=== PATIENT | male | born 1945 | race Caucasian/White ===

== ENCOUNTER → 2017-03-01 | Outpatient (CLI) | payer OTHER ==
[~2017-03-01] MED LIST: ACETAMINOPHEN325 MG PO; DOCUSATE SODIU100 MG PO; KLONOPIN0.5 M3; LANOXIN125 MCG PO; LEVAQUIN750 M1 PO; MIRALAX17 GM PO; OXYCODONE HCL5 MG PO; PANTOPRAZOLE SO40 MG PO
--- NOTE | ~2017-03-01 | CR63 ---
[facility] A Service of [facility] RADIOLOGY TEXT RESULTS PATIENT: TANO ZAVALA LOCATION: [facility] : 44 UNIT #: [id number] AGE: [address]: Zander Wilks MD SEX: M ORDER DR: [id number] [facility] [address] [place], [place] [address] [id number] O MR#: [id number] Acc #: [id number] NAME: TANO ZAVALA : 1945 SEX: M STUDY DATE/TIME: 03/01/2017 16:14 UNIT: [facility] ROOM: STUDY DESCRIPTION: CR Chest 2 View Attending Physician: Zander Wilks M.D. Referring Physician: Zander Wilks M.D. Ordering Physician: Zander Wilks M.D. Primary Care Physician: Madina Thomas M.D. MEDICAL IMAGING REPORT This report is preliminary unless electronic signature is present EXAM PA and lateral chest INDICATIONS Pleural effusion. Shortness of breath for 1 week. There are no comparison studies available. FINDINGS There is a moderate-sized right pleural effusion with atelectasis or consolidation in the right base. There is a rounded density on the PA view of the right upper zone measuring about 3.1 cm. Unsure if this represents a nodule or mass or just some loculated pleural fluid. The heart size is normal. Degenerative changes of the shoulder on the right. IMPRESSION 1. Moderate-sized right pleural effusion with atelectasis or consolidation in the right base. 2. A 3.1 cm ovoid density projecting over the periphery of the right upper zone is indeterminate. It may be some loculated pleural fluid or possibly a mass. Correlation with CT may be helpful. Dictated by... Haja Ma M.D. THIS IS AN ELECTRONICALLY VERIFIED REPORT Haja Ma M.D. at 03/02/2017 7:20 AM IRWIN/petrona TD: 03/01/2017 22:50 JOB #: [id number] MEDICAL IMAGING REPORT [facility] A Service of [facility] RADIOLOGY TEXT RESULTS PATIENT: TANO ZAVALA [id number] 44 UNIT #: [id number] AGE: [address]: Zander Wilks MD SEX: M ORDER DR: Page 1 of 1 COPY
--- NOTE | ~2017-03-01 | EKG ---
PATIENT: TANO ZAVALA UNIT #: [id number] Ventricular Rate: 78 BPM Atrial Rate: 78 BPM P-R Interval: 120 ms QRS Duration: 78 ms Q-T Interval: 372 ms QTC Calculation(Bezet): 424 ms P Plover: 60 degrees Calculated R Plover: 17 degrees Calculated T Plover: 33 degrees Diagnosis Line: Normal sinus rhythm Diagnosis Line: Normal ECG Diagnosis Line: No previous ECGs available Diagnosis Line: Confirmed by ALEXSANDRA KESSLER MD ([id number]) on Diagnosis Line: 03/02/2017 6:49:11 AM INTERPRETING MD: BERENICE
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
== END | disposition home or self-care (01) ==
LOC: CECH 14:18
DX: Z01.818 Encounter for other preprocedural examination (principal); I48.91 Unspecified atrial fibrillation; J90 Pleural effusion, not elsewhere classified; J98.4 Other disorders of lung; I36.1 Nonrheumatic tricuspid (valve) insufficiency; I31.3 Pericardial effusion (noninflammatory)
CPT/HCPCS: 71020; 93005; 93306

== ENCOUNTER 2017-03-06 07:09 | Inpatient (IN) | payer OTHER ==
--- NOTE | ~2017-03-06 | CR63 ---
[facility] A Service of [facility] RADIOLOGY TEXT RESULTS PATIENT: TANO ZAVALA SR RAY LOCATION: [facility] : 44 UNIT #: [id number] AGE: [address]: Zander Wilks MD SEX: M ORDER DR: [id number] [facility] [address] [place], [place] [address] [id number] I MR#: [id number] Acc #: [id number] NAME: TANO ZAVALA : 1945 SEX: M STUDY DATE/TIME: 03/06/2017 8:43 UNIT: [facility] ROOM: STUDY DESCRIPTION: CR Chest 2 View Attending Physician: Zander Wilks M.D. Ordering Physician: Zander Wilks M.D. Primary Care Physician: Madina Thomas M.D. MEDICAL IMAGING REPORT This report is preliminary unless electronic signature is present EXAM Chest x-ray 03/06 INDICATIONS Pleural effusion. Shortness of air. Preop exam for fluid removal today. FINDINGS Two 2 views of the chest are compared with 03/01/2017. There is a large right pleural effusion which has enlarged in the interval. There is underlying consolidation in the right lgd-[id number] lung. Left lung is clear. No pneumothorax. Mixed lytic and sclerotic lesion in the proximal humerus on the right is partially seen. Nonemergent followup with dedicated shoulder radiographs recommended. IMPRESSION 1. Large right pleural effusion, increased from the prior study. There is underlying consolidation right wxu-kd-cmsrb lung. 2. Left lung clear. 3. Mixed density lesion in the proximal right humerus. Nonemergent followup with dedicated right shoulder radiographs recommended. Dictated by... Tano Card Jr., M.D. THIS IS AN ELECTRONICALLY VERIFIED REPORT Tano Card Jr., M.D. at 03/06/2017 3:38 PM CLINTON/rigoberto TD: 03/06/2017 13:49 JOB #: [id number] [facility] A Service of [facility] RADIOLOGY TEXT RESULTS PATIENT: TANO ZAVALA SR LENA LOCATION: [facility] [address]-6 : 44 UNIT #: [id number] AGE: [address]: Zander Wilks MD SEX: M ORDER DR: MEDICAL IMAGING REPORT Page 1 of 1 COPY
--- NOTE | ~2017-03-06 | EKG ---
PATIENT: TANO ZAVALA UNIT #: [id number] Ventricular Rate: 80 BPM Atrial Rate: 80 BPM P-R Interval: 118 ms QRS Duration: 68 ms Q-T Interval: 368 ms QTC Calculation(Bezet): 424 ms P Charlotte: 53 degrees Calculated R Charlotte: 16 degrees Calculated T Charlotte: 28 degrees Diagnosis Line: Normal sinus rhythm Diagnosis Line: Normal ECG Diagnosis Line: When compared with ECG of 01-MAR-2017 15:43, Diagnosis Line: No significant change was found Diagnosis Line: Confirmed by ALEXSANDRA KESSLER MD ([id number]) on Diagnosis Line: 03/07/2017 10:51:14 AM INTERPRETING JERED NG
--- NOTE | ~2017-03-06 | CR72 ---
[facility] A Service of [facility] RADIOLOGY TEXT RESULTS PATIENT: TANO ZAVALA SR LOCATION: [facility] 55- : 44 UNIT #: [id number] AGE: [address]: Zander Wilks MD SEX: M ORDER DR: [id number] [facility] [address] [place], [place] [address] [id number] I MR#: [id number] Acc #: [id number] NAME: TANO ZAVALA SR : 1945 SEX: M STUDY DATE/TIME: 03/10/2017 6:29 UNIT: [facility] ROOM: [facility] STUDY DESCRIPTION: CR Chest Single View Portable Attending Physician: Zander Wilks M.D. Ordering Physician: Alysia Turcios A.P.R.N. Primary Care Physician: Madina Thomas M.D. MEDICAL IMAGING REPORT This report is preliminary unless electronic signature is present EXAM Frontal chest, 03/10/2017. INDICATIONS Right-sided chest tube. COPD. Status post video-assisted fluoroscopy. Symptoms 4 days. COPD and atrial fibrillation. TECHNIQUE Frontal chest compared with 03/09/2017. FINDINGS Two right-sided chest tubes are present. Cardiac silhouette stable. Lung volumes are low with bronchovascular crowding versus mild central vascular congestion. No new opacities on the left. Persistent opacities in the right lung base with pleural thickening or pleural fluid extending to the right lung apex. Probable small right effusion. There is a rounded opacity in the lower lung zone on the right which is nonspecific, but may represent some fluid in the minor fissure. No pneumothorax. IMPRESSION 1. Right-sided chest tubes remain present. No distinct pneumothorax. 2. Redemonstration of opacities in the right lung base with a right-sided effusion. There is a rounded opacity in the lower lung zone, that may represent some fluid associated with a minor fissure. Attention on followup recommended. 3. Pleural thickening/pleural fluid extending into the right lung apex unchanged. Left lung demonstrates no significant change. Dictated by... Jorge Timmons M.D. THIS IS AN ELECTRONICALLY VERIFIED REPORT [facility] A Service of [facility] & [facility] RADIOLOGY TEXT RESULTS PATIENT: TANO ZAVALA SR LOCATION: [facility] 554-01 : 43 UNIT #: [id number] AGE: [address]: Zander Wilks MD SEX: M ORDER DR: Jorge Timmons M.D. at 03/11/2017 8:43 AM Jesús TD: 03/10/2017 18:34 JOB #: [id number] MEDICAL IMAGING REPORT Page 1 of 1 COPY
--- NOTE | ~2017-03-06 | DS ---
Unit #: [id number] #: [id number] Patient: TANO ZAVALA SR [id number] [id number] [facility]. [place], [place] [address] [id number] I MR#: [id number] NAME: TANO ZAVALA SR ROOM: 554 Age: 71 Sex: M Admission Date: 03/06/2017 : 1945 Discharge Date: 03/10/2017 Attending Physician: Zander Wilks M.D. Primary Care Physician: Madina Thomas M.D. DISCHARGE SUMMARY PROCEDURE Right video assisted thoracoscopy with parietal pleural biopsies and talc pleurodesis. HISTORY OF PRESENT ILLNESS Mr. Zavala is a 71-year-old gentleman who was in his usual active state of health about six weeks ago when he developed shortness of air and was found to have a pleural effusion of his right lung. He underwent care under the direction of Dr. Madina Thomas and [facility], relieving 1500 mL of serous fluid. Cytology was suggestive of mesothelioma; however, no malignancy was identified. On 02/08/[address] of the chest revealed diffuse nodular thickening of the right pleura measuring up to 1.5 cm and new right pleural effusion was noted. On 02/25/2017 [facility] to [facility] and underwent a thoracentesis with 1700 mL of fluid removed. He had chronic atrial fibrillation but does not require any anticoagulation as he has chronic atrial fibrillation but is not on any chronic anticoagulation. He is on chronic O2 at home as of 02/25/2017. He was admitted at [facility] after evaluation by Dr. Zander Wilks on 03/01/2017. He was admitted on 03/06/2017 to [facility]. He underwent right video assisted thoracoscopy with parietal pleural biopsies, as well as talc pleurodesis. On today's date, which is 03/10/2017 his chest tubes have been removed. His chest tube drainage is minimal. His cultures on pleural fluid have been negative. There are cultures on BAL, which may or may note be mislabeled in the computer according to micro, which grew out H. flu, so therefore, he has been treated with a 14 day regimen of Levaquin 750 mg once a day p.o. every day. Mr. Zavala is doing well. He is ambulated in the [place] with a walker. He has no fever or chills. He does have on examination, his lung have some rhonchi noted, which he clears with cough. He states this is his usual cough that he has in the morning. He has no night sweats and he has not lost any weight during his hospital admission. His appetite is good. He is yet to have a bowel movement but is on a bowel regimen of Colace and MiraLAX and will receive Dulcolax suppository before he leaves today. His chest x-ray this morning was without any pneumothorax. MEDICATIONS ON DISCHARGE 1. Tylenol 650 mg every 4 hours p.r.n. for pain or fever. 2. Clonazepam 0.5 mg twice daily. 3. Digoxin 0.125 mg p.o. daily. 4. Colace 100 mg 1 p.o. twice daily. 5. MiraLAX 17 g 1 packet once a day in 8 oz of water. 6. Oxycodone 5 mg 1 or 2 every 4 hours p.r.n. for pain. 7. Pantoprazole 40 mg p.o. daily. Unit #: [id number] #: [id number] Patient: TANO ZAVALA SR 8. Levaquin 750 mg 1 p.o. every day for 13 more days. DISCHARGE INSTRUCTIONS 1. No tub baths. 2. No lifting over 10 pounds. 3. Dressing is to remain in place until Sunday, March 12, 2017, and then this dressing may be removed and he may shower and then apply band-aid as necessary. I have instructed his on how to change the dressing in case his dressing should be saturated at home. They will have my cell phone number to call me with any questions. He is to followup with Dr. Wilks on 03/29/2017 at 2:00 p.m. at the [facility] office and have a chest x-ray prior to the appointment. IMPRESSION 1. Recurrent right pleural effusion with body fluids being negative for growth at 72 hours. Anatomical pathology reveals atypia suspicious for involvement of lymphoproliferative neoplasm, and specimens are still pending, which are suspicious for lymphoma but final path is still pending. 2. Chronic obstructive pulmonary disease under control on home O2. Patient will have tank here before he leaves today. 3. H. influenza and BAL treated with Levaquin for 14 days, 750 mg p.o. PLAN Plan on seeing him back in the office as stated above. Dictated by... Alysia Turcios A.P.R.N. for Gama Payne/ts TD: 03/13/2017 14:08 JOB #: [id number] DISCHARGE SUMMARY Page 1 of 1 X Alysia Turcios APRN X DISCHARGE SUMMARY
--- NOTE | ~2017-03-06 | CR71 ---
[facility] A Service of [facility] & [facility] RADIOLOGY TEXT RESULTS PATIENT: TANO ZAVALA SR LOCATION: [address] : 43 UNIT #: [id number] AGE: [address]: Zander Wilks MD SEX: M ORDER DR: [id number] [facility] [address] [place] [address]. [place], [place] [address] [id number] I MR#: [id number] Acc #: [id number] NAME: TANO ZAVALA SR : 1945 SEX: M STUDY DATE/TIME: 03/06/2017 13:14 UNIT: [facility] ROOM: [facility] STUDY DESCRIPTION: CR Chest Single View Attending Physician: Zander Wilks M.D. Ordering Physician: Zander Wilks M.D. Primary Care Physician: Madina Thomas M.D. MEDICAL IMAGING REPORT This report is preliminary unless electronic signature is present EXAM Portable chest. INDICATION Shortness of breath following a bronchoscopy today. FINDINGS Compared to a prior exam from March 06, 2017, two right-sided chest tubes are now identified. The patient does have a right-sided pneumothorax predominantly basilar in location. There is also a small amount of right pleural fluid as well although this has diminished when compared to prior study. No pneumothorax is identified on the left. There is diffuse interstitial prominence as well as some increasing atelectasis noted at the left lung base when compared to earlier examination. Sclerotic changes are seen within the right humeral head. Dictated by... Freda Steele M.D. THIS IS AN ELECTRONICALLY VERIFIED REPORT Freda Steele M.D. at 03/08/2017 5:14 PM AFF/cs TD: 03/06/2017 19:04 JOB #: [id number] MEDICAL IMAGING REPORT Page 1 of 1 COPY
--- NOTE | ~2017-03-06 | CR71 ---
[facility] A Service of [facility] & [facility] RADIOLOGY TEXT RESULTS PATIENT: TANO ZAVALA SR LOCATION: [address] : 43 UNIT #: [id number] AGE: [address]: Zander Wilks MD SEX: M ORDER DR: [id number] [facility] [address]. [place], [place] [address] [id number] I MR#: [id number] Acc #: [id number] NAME: TANO ZAVALA SR : 1945 SEX: M STUDY DATE/TIME: 03/07/2017 5:28 UNIT: [facility] ROOM: [facility] STUDY DESCRIPTION: CR Chest Single View Attending Physician: Zander Wilks M.D. Ordering Physician: Zander Wilks M.D. Primary Care Physician: Madina Thomas M.D. MEDICAL IMAGING REPORT This report is preliminary unless electronic signature is present EXAM Single view chest. INDICATIONS Shortness of air. Right-sided chest tube placement. FINDINGS Single portable AP of the chest compared to 03/06/2017. 2 right-sided chest tubes remain in place. There is no pneumothorax. There is increase in atelectasis in the right lower lobe. Mild left basilar atelectasis is unchanged. IMPRESSION Increasing atelectasis in the right lower lobe. Dictated by... Ferdinand Morales M.D. THIS IS AN ELECTRONICALLY VERIFIED REPORT Ferdinand Morales M.D. at 03/07/2017 1:29 PM [place]/eric TD: 03/07/2017 09:11 JOB #: [id number] MEDICAL IMAGING REPORT Page 1 of 1 COPY
--- NOTE | ~2017-03-06 | CO ---
Unit #: [id number] #: [id number] Patient: TANO ZAVALA SR [id number] [address] [place], [place] [address] [id number] I MR#: [id number] NAME: TANO ZAVALA SR ROOM: [facility] Age: 71 Sex: M Admission Date: 03/06/2017 : 1945 Attending Physician: Zander Wilks M.D. Primary Care Physician: Madina Thomas M.D. Consultation Date: 03/07/2017 CONSULTATION REPORT REASON FOR CONSULT ICU management. HISTORY OF PRESENT ILLNESS This is a very pleasant 71-year-old male with past medical history significant for extensive smoking, one pack per day for 50 years, afib, COPD, on oxygen as needed, who is currently in ICU postoperatively from a VATS procedure. Patient was found to have an abnormal CT chest finding including mediastinal nodes with diffuse nodular pleura thickening with cytology suggesting mesothelioma. Patient underwent VATS with pleural biopsy and pleurodesis. Patient currently is on 3 L nasal cannula. He is in mild to moderate pain. He is complaining of occasional cough, no fever or chills. PAST MEDICAL HISTORY 1. Paroxysmal afib on anticoagulation. 2. GERD. 3. COPD. 4. Asbestos exposure. PAST SURGICAL HISTORY 1. Appendectomy. 2. Cataract surgery. 3. Cholecystectomy. 4. Hernia repair. 5. Tonsillectomy. 6. Ear surgery. SOCIAL HISTORY Patient quit smoking eight weeks ago but he used to smoke at least one pack per day for 50 years. Patient is and retired from [employer]. 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 No history of alcohol or drug abuse. FAMILY HISTORY CVA and hypertension. ALLERGIES Codeine. HOME MEDICATION Unit #: [id number] #: [id number] Patient: TANO ZAVALA SR 1. Clonazepam. 2. Digoxin. 3. Protonix. REVIEW OF SYSTEMS A 12-point review of systems was reviewed and negative except for chest discomfort, occasional cough and shortness of breath. PHYSICAL EXAMINATION GENERAL: The patient is in no acute distress but he is in mild pain. VITAL SIGNS: Blood pressure is 131/62. Respiratory rate 22. O2 saturation 98. HEENT: Normocephalic and atraumatic. PERRLA. EOMI. NECK: Supple. No JVD. No lymphadenopathy. CHEST: Bilateral fine rhonchi. HEART: S1, S2. No murmur, gallops or rubs. ABDOMEN: Soft, nontender. Bowel sound is positive. No hepatosplenomegaly. EXTREMITIES: No edema or cyanosis. SKIN: No rashes. WINDOWS SECURITY ANALYST: Awake, alert, oriented x3. No focal motor/sensory deficits. DIAGNOSTIC STUDIES LABORATORY: ABG is 7.41/40/69/26. Creatinine 1.4, sodium 132, white blood count 20.1. IMAGING: Chest x-ray is reviewed by me. ASSESSMENT 1. Chronic hypoxic respiratory failure. 2. Malignant pleural effusion. 3. Hyponatremia. 4. Chronic kidney disease. 5. Chronic obstructive pulmonary disease. 6. Smoking. PLAN 1. Will continue patient on bronchodilator and encourage incentive spirometry use q.1-2 h. p.r.n. 2. Pain management. 3. Bowel regimen. 4. Physical therapy and out of bed to chair. 5. Chest tube management per cardiothoracic surgeon. 6. DVT prophylaxis with heparin. I would like to thank Dr. Wilks for allowing me to be part of this patient's care. Dictated by... Gama Mariscal TD: 03/07/2017 19:30 Unit #: [id number] #: [id number] Patient: TANO ZAVALA SR JOB #: [id number] CONSULTATION REPORT Page 1 of 1 X OLIVIER DURAN MD CONSULTATION REPORT
--- NOTE | ~2017-03-06 | CR72 ---
[facility] A Service of [facility] RADIOLOGY TEXT RESULTS PATIENT: TANO ZAVALA SR RAY LOCATION: [place] [address] : 43 UNIT #: [id number] AGE: [address]: Zander Wilks MD SEX: M ORDER DR: [id number] [facility] [address] [place], [place] [address] [id number] MR#: [id number] Acc #: [id number] NAME: TANO ZAVALA : 1945 SEX: M STUDY DATE/TIME: 03/09/2017 6:06 UNIT: [facility] ROOM: [facility] STUDY DESCRIPTION: CR Chest Single View Portable Attending Physician: Zander Wilks M.D. Ordering Physician: Alysia Turcios A.P.R.N. Primary Care Physician: Madina Thomas M.D. MEDICAL IMAGING REPORT This report is preliminary unless electronic signature is present EXAM Frontal chest, 03/09/2017. INDICATIONS Right-sided chest tube. Status post VATS procedure. Shortness of breath for years, atrial fibrillation, COPD. Tobacco abuse. TECHNIQUE Frontal chest compared with 03/08/2017. FINDINGS Right-sided chest tubes remain present. Cardiac silhouette enlarged, but stable. Vascularity within normal limits. Opacities in the right lung base with a probable small right effusion unchanged. Pleural thickening and/or partially loculated pleural fluid tracking superolaterally into the right lung apex unchanged. No pneumothorax. There is advanced degenerative change of the right shoulder. Subcutaneous emphysema. IMPRESSION 1. Right-sided chest tubes remain present. No significant change in appearance of the right hemithorax. Slight improvement in overall inspiratory result. Dictated by... Jorge Timmons M.D. THIS IS AN ELECTRONICALLY VERIFIED REPORT Jorge Timmons M.D. at 03/09/2017 3:31 PM Navid TD: 03/09/2017 13:31 JOB #: [id number] [facility] A Service of [facility] RADIOLOGY TEXT RESULTS PATIENT: TANO ZAVALA SR RAY LOCATION: [facility] [id number] : 44 UNIT #: [id number] AGE: [address]: Zander Wilks MD SEX: M ORDER DR: MEDICAL IMAGING REPORT Page 1 of 1 COPY
--- NOTE | ~2017-03-06 | CR72 ---
[facility] A Service of [facility] RADIOLOGY TEXT RESULTS PATIENT: TANO ZAVALA SR LOCATION: [facility] : 43 UNIT #: [id number] AGE: [address]: Zander Wilks MD SEX: M ORDER DR: [id number] [place] [address] [place], [place] [address] [id number] I MR#: [id number] Acc #: [id number] NAME: TANO ZAVALA SR : 1945 SEX: M STUDY DATE/TIME: 03/10/2017 8:43 UNIT: [facility] ROOM: [facility] STUDY DESCRIPTION: CR Chest Single View Portable Attending Physician: Zander Wilks M.D. Ordering Physician: Zander Wilks M.D. Primary Care Physician: Madina Thomas M.D. MEDICAL IMAGING REPORT This report is preliminary unless electronic signature is present EXAM Portable chest. DATE OF STUDY 03/10/2017 at 08:43. COMPARISON STUDIES 03/10/2017 at 06:29 CLINICAL HISTORY Chest tube removal. FINDINGS Since the earlier study, two right chest tubes have been removed. There is some right pleural thickening and/or fluid and right basilar atelectasis but there is no pneumothorax. Mild vascular congestion remains. No new abnormality. Dictated by... Sherif Bartholomew M.D. THIS IS AN ELECTRONICALLY VERIFIED REPORT Sherif Bartholomew M.D. at 03/12/2017 10:55 AM LEÓN/liss TD: 03/10/2017 20:00 JOB #: [id number] MEDICAL IMAGING REPORT [facility] A Service [facility] RADIOLOGY TEXT RESULTS PATIENT: TANO ZAVALA SR LOCATION: [facility] : 43 UNIT #: [id number] AGE: [address]: Zander Wilks MD SEX: M ORDER DR: Page 1 of 1 COPY
--- NOTE | ~2017-03-06 | CR72 ---
[facility] A Service of [facility] RADIOLOGY TEXT RESULTS PATIENT: TANO ZAVALA SR RAY LOCATION: [place] [address] : 43 UNIT #: [id number] AGE: [address]: Zander Wilks MD SEX: M ORDER DR: [id number] [facility] [address] [place], [place] [address] [id number] I MR#: [id number] Acc #: [id number] NAME: TANO ZAVALA : 1945 SEX: M STUDY DATE/TIME: 03/08/2017 4:37 UNIT: [facility] ROOM: [facility] STUDY DESCRIPTION: CR Chest Single View Portable Attending Physician: Zander Wilks M.D. Ordering Physician: Alysia Turcios A.P.R.N. Primary Care Physician: Madina Thomas M.D. MEDICAL IMAGING REPORT This report is preliminary unless electronic signature is present EXAM Portable chest INDICATION Shortness of air today. PROCEDURE Frontal view chest. COMPARISON 03/07/2017 FINDINGS Heart size stable, right-sided chest tubes are similar. No visible pneumothorax. IMPRESSION Stable. Dictated by... Wali Ojeda M.D. THIS IS AN ELECTRONICALLY VERIFIED REPORT Wali Ojeda M.D. at 03/08/2017 10:26 PM POLLY/lei TD: 03/08/2017 04:58 JOB #: [id number] MEDICAL IMAGING REPORT Page 1 of 1 COPY
--- NOTE | ~2017-03-06 | OR ---
Unit #: [id number] #: [id number] Patient: TANO ZAVALA SR [id number] [address] [place], [place] [address] [id number] I MR#: [id number] NAME: TANO ZAVALA SR ROOM: [facility] Date of Procedure: 03/06/2017 Admission Date: 03/06/2017 Surgeon: Zander Wilks M.D. : 1945 Attending Physician: Zander Wilks M.D. Primary Care Physician: Madina Thomas M.D. OPERATIVE REPORT PREOPERATIVE DIAGNOSES Recurrent right pleural effusion and nodularity of the parietal pleura. 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 PROCEDURES PERFORMED Flexible fiberoptic bronchoscopy with bronchial washings collected; right video-assisted thoracoscopy with parietal pleural biopsies and with talc pleurodesis being performed. ANESTHESIA General. ESTIMATED BLOOD LOSS About 75 mL. DRAINS Two #28 chest tubes. COMPLICATIONS None. DESCRIPTION OF PROCEDURE The patient was taken to the operating room and placed on the operating room table in a supine position. After appropriate monitoring lines had been placed, general endotracheal anesthesia was then induced using a single-lumen endotracheal tube. Flexible fiberoptic bronchoscopy was performed per this endotracheal tube per a side-port adapter placed on the tube. The distal trachea appeared normal. The praveen was sharp. The left mainstem bronchus was normal. The left upper lobe and left lower lobe were both examined to their subsegmental bronchi level and found to be within normal limits. The right upper lobe, right middle lobe, and right lower lobe were all examined to their subsegmental bronchi level with no endobronchial masses being seen, but with extrinsic compression of the segmental bronchi being noted. Bronchial washings were collected and sent for cytology as well as cultures. Following this, the single lumen endotracheal tube was removed and replaced with a double-lumen endotracheal tube. Adequate positioning of this tube was ensured using Unit #: [id number] #: [id number] Patient: TANO ZAVALA SR the pediatric bronchoscope. The patient was then placed on the operating room table in a left lateral decubitus position. A rolled sheet was placed beneath the left axillary area. The patient was secured in place on the operating room table using a carson bag as well as tape across the right hip. The right arm was supported anteriorly on an arm support. The right chest was prepped with DuraPrep and draped in a sterile fashion. A small 1 to 1.5 cm skin incision was made in the mid axillary line at about the eighth intercostal space. The incision was carried down through the subcutaneous tissue and muscle and fascial layers using the Bovie. Following this, the right lung was deflated and the chest entered at this level using a Taryn clamp. A gloved finger was then inserted. A suction catheter was then inserted into the pleural space and fluid present aspirated free. The fluid removed had an aminah color. Portions of the fluid were sent for cytology as well as cultures. About 2800 mL of fluid was removed from the right pleural space. Following this, a trocar introducer was inserted and the thoracoscope then passed per this trocar introducer. Examination of the pleural space revealed multiple implants involving the parietal pleura with the largest ones being along the inferoposterior gutter. Photos were taken. Another counter incision was made in the chest in the seventh intercostal space just lateral to the previous incision. This incision was carried down through the subcutaneous tissue and muscle and fascial layers using the Bovie. The chest was then entered with a Taryn clamp and a trocar introducer inserted. Several biopsies were obtained from the parietal pleura in the lower posterior gutter. Portions of these biopsies were sent to Pathology for frozen section. Frozen section on this abnormal parietal pleura was suspicious for lymphoma. The additional parietal pleural biopsies that were obtained were sent to Pathology for permanent sections and for flow cytometry. Hemostasis at the biopsy sites was obtained using the Bovie. The chest was then irrigated with warm sterile water. The sterile water was then aspirated free from the pleural space. After hemostasis had again been ensured, it was elected to proceed on with talc pleurodesis. About 10 g of sterile talc was sprayed along the parietal pleural surface and along the diaphragm. Following this, intercostal nerve blocks were performed using quarter-strength Marcaine solution. Two #28 chest tubes were inserted per the 2 incisions in the chest. The anterior tube was placed up to the apex of the chest while the posterior tube was passed along the posterior gutter. They were sutured in place to the skin using 2-0 silk suture. They were then wired to a Pleur-evac. A cut 4x4 was placed around the chest tubes, and they were secured in place with tape. Estimated blood loss in the entire procedure was about 75 mL. Sponge and needle counts in the operation were correct. The patient tolerated the procedure well and left the operating room in satisfactory condition. Dictated by... Gama Payne/manoj TD: 03/07/2017 03:38 JOB #: [id number] Unit #: [id number] #: [id number] Patient: LUCAS MILLS,TANO PAREDES OPERATIVE REPORT Page 1 of 1 X Zander Wilks MD X PROCEDURE OPERATIVE NOTE
[~2017-03-06 07:09] MED LIST changes: -ACETAMINOPHEN325 MG PO; -DOCUSATE SODIU100 MG PO; -LEVAQUIN750 M1 PO; -MIRALAX17 GM PO; -OXYCODONE HCL5 MG PO
[2017-03-06 07:39] LABS: URINE APPEARANCE CLEAR; URINE BILIRUBIN NEG (NEG); URINE BLOOD 1+ (NEG); URINE COLOR YELLOW; URINE GLUCOSE NEG (NEG); URINE KETONE NEG (NEG); URINE LEUKOCYTE ESTERASE NEG (NEG); URINE NITRATE NEG (NEG); URINE PROTEIN NEG (NEG); URINE SPECIFIC GRAVITY 1.021 (1.003-1.035); URINE UROBILINOGEN 0.2 MG/DL (NEG)
[2017-03-06 07:41] LABS: U HYALINE CASTS AUWI 0-2 /[LPF]; URINE BACTERIA AUWI NEG (NEGATIVE); URINE SQUAMOUS EPITHELIAL CELL NONE SEEN /[HPF]; UWBCS1 AUWI 0-2 (0-5)
[2017-03-06 08:03] LABS: HEMATOCRIT 49.2 % (38.0-50.0); HEMOGLOBIN 16.4 gm/dL (13.0-16.0); MEAN CELL VOLUME 95.8 FL (83-96); MEAN CORPUSCULAR HEMOGLOBIN 31.9 PG (28-34); MEAN CORPUSCULAR HGB CONC 33.3 g/dL (30-36); MEAN PLATELET VOLUME 9.4 FL (6.5-11.5); RED BLOOD COUNT 5.13 X10e (3.90-5.60); RED CELL DISTRIBUTION WIDTH 12.7 % (11.0-15.5); WHITE BLOOD COUNT 9.6 X10e3 (4.0-10.5)
[2017-03-06 08:22] LABS: PARTIAL THROMBOPLASTIN TIME 27.4 SECONDS (23.5-31.3)
[2017-03-06 08:31] LABS: ALBUMIN SERUM 3.6 g/dL (3.5-5.0); BILIRUBIN,TOTAL 0.8 mg/dL (0.2-2.0); BUN/CREATININE RATIO 7.5; CALCIUM SERUM 9.3 mg/dL (8.4-10.2); CREATININE SERUM 1.2 mg/dL (0.6-1.4); GLOM FILT RATE Estimated 60.1 mL/min (>60); POTASSIUM 3.7 mmol/L (3.5-5.1); PROTEIN TOTAL SERUM 7.3 g/dL (6.0-8.3)
[2017-03-06 13:02] LABS: BASOPHIL% 0.1 % (0-2.5); DIFF IND NO; EOSINOPHIL# 0.1 X10e3 (0-0.7); HEMATOCRIT 47.8 % (38.0-50.0); HEMOGLOBIN 15.7 gm/dL (13.0-16.0); LYMPHOCYTE# 1.1 X10e3 (1.0-3.5); LYMPHOCYTE% 13.6 % (17.0-45.0); MEAN CELL VOLUME 96.3 FL (83-96); MEAN CORPUSCULAR HEMOGLOBIN 31.6 PG (28-34); MEAN CORPUSCULAR HGB CONC 32.8 g/dL (30-36); MONOCYTE# 0.7 X10e3 (0-1.0); MONOCYTE% 7.9 % (3.0-12.0); NEUTROPHIL# 6.5 X10e3 (1.5-7.1); NEUTROPHIL% 77.4 % (40-75); PLATELET COUNT 225 X10e3 (140-420); RED BLOOD COUNT 4.96 X10e (3.90-5.60); RED CELL DISTRIBUTION WIDTH 12.8 % (11.0-15.5); WHITE BLOOD COUNT 8.4 X10e3 (4.0-10.5)
[2017-03-06 13:14] LABS: ARTERIAL BLD GAS O2 SATURATION 95.3 % (90.0-100.0); ARTERIAL BLOOD GAS HCO3 28.3 mmol/L; ARTERIAL BLOOD GAS MET HB 0.5 %sat (0.0-2.0); ARTERIAL BLOOD GAS PO2 89.8 mmHg (80.0-100); ARTERIAL BLOOD GAS pH 7.329 (7.350-7.450)
[2017-03-06 13:16] LABS: ARTERIAL BLOOD GAS ALLEN TEST NORMAL; ARTERIAL BLOOD GAS ART SITE LEFT RADIAL; ARTERIAL BLOOD GAS DELIVERY SIMPLE MASK; ARTERIAL BLOOD GAS PCO2 53.8 mmHg (35.0-45.0); ARTERIAL DRAW? YES
[2017-03-06 13:30] LABS: BUN/CREATININE RATIO 9.09; CALCIUM SERUM 8.7 mg/dL (8.4-10.2); CREATININE SERUM 1.1 mg/dL (0.6-1.4); GLOM FILT RATE Estimated 66.7 mL/min (>60); POTASSIUM 4.6 mmol/L (3.5-5.1)
[2017-03-07 04:27] LABS: ARTERIAL BLD GAS O2 SATURATION 92.8 % (90.0-100.0); ARTERIAL BLOOD GAS CARBOXY HB 1.6 %sat (0.0-9.0); ARTERIAL BLOOD GAS MET HB 0.6 %sat (0.0-2.0); ARTERIAL BLOOD GAS PCO2 40.1 mmHg (35.0-45.0); ARTERIAL BLOOD GAS pH 7.421 (7.350-7.450)
[2017-03-07 04:28] LABS: ARTERIAL BLOOD GAS ALLEN TEST NORMAL; ARTERIAL BLOOD GAS ART SITE RIGHT RADIAL; ARTERIAL BLOOD GAS DELIVERY NASAL CANNULA; ARTERIAL BLOOD GAS PO2 69.5 mmHg (80.0-100); ARTERIAL DRAW? YES
[2017-03-07 05:44] LABS: BASOPHIL% 0.1 % (0-2.5); EOSINOPHIL% 0.2 % (0.0-7.0); HEMATOCRIT 46.6 % (38.0-50.0); HEMOGLOBIN 15.3 gm/dL (13.0-16.0); LYMPHOCYTE# 0.8 X10e3 (1.0-3.5); LYMPHOCYTE% 3.9 % (17.0-45.0); MEAN CORPUSCULAR HEMOGLOBIN 31.5 PG (28-34); MEAN CORPUSCULAR HGB CONC 32.8 g/dL (30-36); MEAN PLATELET VOLUME 9.8 FL (6.5-11.5); MONOCYTE# 2.3 X10e3 (0-1.0); MONOCYTE% 11.4 % (3.0-12.0); NEUTROPHIL# 16.9 X10e3 (1.5-7.1); NEUTROPHIL% 84.4 % (40-75); PLATELET COUNT 229 X10e3 (140-420); RED BLOOD COUNT 4.85 X10e (3.90-5.60); RED CELL DISTRIBUTION WIDTH 12.7 % (11.0-15.5)
[2017-03-07 05:46] LABS: BUN/CREATININE RATIO 7.14; CALCIUM SERUM 8.8 mg/dL (8.4-10.2); CREATININE SERUM 1.4 mg/dL (0.6-1.4); DIFF IND YES; GLOM FILT RATE Estimated 49.9 mL/min (>60); POTASSIUM 4.6 mmol/L (3.5-5.1); WHITE BLOOD COUNT 20.1 X10e3 (4.0-10.5)
[2017-03-07 06:33] LABS: PLATELET ESTIMATE NORMAL (NORMAL); RBC NORMAL YES
[2017-03-08 04:38] LABS: HEMATOCRIT 41.1 % (38.0-50.0); HEMOGLOBIN 13.6 gm/dL (13.0-16.0); MEAN CORPUSCULAR HEMOGLOBIN 31.4 PG (28-34); MEAN PLATELET VOLUME 9.2 FL (6.5-11.5); RED BLOOD COUNT 4.32 X10e (3.90-5.60); RED CELL DISTRIBUTION WIDTH 12.5 % (11.0-15.5); WHITE BLOOD COUNT 11.3 X10e3 (4.0-10.5)
[2017-03-08 04:57] LABS: CALCIUM SERUM 8.5 mg/dL (8.4-10.2); CREATININE SERUM 1.1 mg/dL (0.6-1.4); GLOM FILT RATE Estimated 66.7 mL/min (>60); POTASSIUM 4.3 mmol/L (3.5-5.1)
[2017-03-09 04:45] LABS: BASOPHIL% 0.1 % (0-2.5); DIFF IND NO; EOSINOPHIL# 0.3 X10e3 (0-0.7); EOSINOPHIL% 2.6 % (0.0-7.0); HEMATOCRIT 39.5 % (38.0-50.0); LYMPHOCYTE# 0.6 X10e3 (1.0-3.5); LYMPHOCYTE% 6.3 % (17.0-45.0); MEAN CELL VOLUME 95.6 FL (83-96); MEAN CORPUSCULAR HEMOGLOBIN 31.4 PG (28-34); MEAN CORPUSCULAR HGB CONC 32.9 g/dL (30-36); MONOCYTE# 1.1 X10e3 (0-1.0); MONOCYTE% 11.6 % (3.0-12.0); NEUTROPHIL# 7.6 X10e3 (1.5-7.1); NEUTROPHIL% 79.4 % (40-75); PLATELET COUNT 189 X10e3 (140-420); RED BLOOD COUNT 4.14 X10e (3.90-5.60); RED CELL DISTRIBUTION WIDTH 12.5 % (11.0-15.5); WHITE BLOOD COUNT 9.5 X10e3 (4.0-10.5)
[2017-03-09 05:07] LABS: CALCIUM SERUM 8.6 mg/dL (8.4-10.2); GLOM FILT RATE Estimated 74.9 mL/min (>60); POTASSIUM 4.2 mmol/L (3.5-5.1)
[2017-03-10 05:48] LABS: HEMATOCRIT 37.4 % (38.0-50.0); HEMOGLOBIN 12.6 gm/dL (13.0-16.0); MEAN CELL VOLUME 94.2 FL (83-96); MEAN CORPUSCULAR HEMOGLOBIN 31.8 PG (28-34); MEAN CORPUSCULAR HGB CONC 33.7 g/dL (30-36); MEAN PLATELET VOLUME 8.9 FL (6.5-11.5); RED BLOOD COUNT 3.97 X10e (3.90-5.60); RED CELL DISTRIBUTION WIDTH 12.3 % (11.0-15.5); WHITE BLOOD COUNT 7.2 X10e3 (4.0-10.5)
[2017-03-10] MEDS ORDERED: ACETAMINOPHEN325 MG PO (12:13)
[2017-03-10] MEDS ORDERED: DOCUSATE SODIU100 MG PO (12:14)
[2017-03-10] MEDS ORDERED: MIRALAX17 GM PO (12:15)
[2017-03-10] MEDS ORDERED: LEVAQUIN750 M1 PO (12:16)
[2017-03-10] MEDS ORDERED: OXYCODONE HCL5 MG PO (12:17)
== END 2017-03-10 14:31 | disposition home or self-care (01) | DRG 824 ==
LOC: CSUR 07:09 → CICCU2 10:21 → CPACUOF 10:21 → CSUR 10:21 → CICCU2 12:35 → CPACUOF 12:35 → CICCU2 16:08 → C5B 03-08 18:56
PROVIDERS: Nurse Practitioner; Surgery
PROC: 0BB48ZX Excision of Right Upper Lobe Bronchus, Via Natural or Artificial Opening Endoscopic, Diagnostic (ICD-10-PCS; 2017-03-06)
PROC: 0BB58ZX Excision of Right Middle Lobe Bronchus, Via Natural or Artificial Opening Endoscopic, Diagnostic (ICD-10-PCS; 2017-03-06)
PROC: 0BBN4ZX Excision of Right Pleura, Percutaneous Endoscopic Approach, Diagnostic (ICD-10-PCS; principal; 2017-03-06 10:00)
PROC: 3E0L3GC Introduction of Other Therapeutic Substance into Pleural Cavity, Percutaneous Approach (ICD-10-PCS; 2017-03-06 10:00)
PROC: 0BB68ZX Excision of Right Lower Lobe Bronchus, Via Natural or Artificial Opening Endoscopic, Diagnostic (ICD-10-PCS; 2017-03-06 10:00)
DX: C85.82 Other specified types of non-Hodgkin lymphoma, intrathoracic lymph nodes (principal); J96.11 Chronic respiratory failure with hypoxia; I48.0 Paroxysmal atrial fibrillation; E87.1 Hypo-osmolality and hyponatremia; Z98.49 Cataract extraction status, unspecified eye; Z90.49 Acquired absence of other specified parts of digestive tract; J44.9 Chronic obstructive pulmonary disease, unspecified; Z79.01 Long term (current) use of anticoagulants; K21.9 Gastro-esophageal reflux disease without esophagitis; Z77.090 Contact with and (suspected) exposure to asbestos; F17.210 Nicotine dependence, cigarettes, uncomplicated; N18.9 Chronic kidney disease, unspecified; J11.1 Influenza due to unidentified influenza virus with other respiratory manifestations
CPT/HCPCS: 36600; 71010; 71020; 80048; 80053; 81003; 82803; 83735; 85025; 85027; 85610; 85730; 86850; 86900; 86901; 87070; 87077; 87102; 87106; 87116; 87205; 87206; 88108; 88305; 88312; 93005; 94640; 94760; 97110; 97116; 97163; 97167; 97530; 97535; G0238; G8978-GP; G8979-GP; G8987-GO; G8988-GO; J0330; J0690; J1644; J1940; J2250; J2270; J2405; J2710; J3010

== ENCOUNTER → 2017-03-29 | Outpatient (CLI) | payer OTHER ==
[~2017-03-29] MED LIST changes: +ACETAMINOPHEN325 MG PO; +DOCUSATE SODIU100 MG PO; +LEVAQUIN750 M1 PO; +MIRALAX17 GM PO; +OXYCODONE HCL5 MG PO
--- NOTE | ~2017-03-29 | CR63 ---
[facility] A Service of [facility] RADIOLOGY TEXT RESULTS PATIENT: TANO ZAVALA RAY LOCATION: [facility] : 44 UNIT #: [id number] AGE: [address]: Alysia Turcios APRN SEX: M ORDER DR: [id number] [facility] [address] [place], [place] [address] [id number] O MR#: [id number] Acc #: [id number] NAME: TANO ZAVALA : 1945 SEX: M STUDY DATE/TIME: 03/29/2017 11:52 UNIT: [facility] ROOM: STUDY DESCRIPTION: CR Chest 2 View Attending Physician: Alysia Turcios A.P.R.N. Referring Physician: Alysia Turcios A.P.R.N. Ordering Physician: Alysia Turcios A.P.R.N. Primary Care Physician: Madina Thomas M.D. MEDICAL IMAGING REPORT This report is preliminary unless electronic signature is present EXAM Chest 2 views 03/29/2017 1152 hours HISTORY Pleural effusion for followup. COMPARISON 03/10/2017 FINDINGS Upright PA and lateral views of the chest demonstrate a stable heart size at the upper limits of normal. Mediastinal and hilar contours are normal. Lungs are well expanded and clear of acute densities. There is hazy density at the right lateral lung base slightly improved from prior study which could represent pleural fluid or pleural thickening. No left pleural effusion is seen. IMPRESSION 1. Slight decrease in hazy lateral basal density on the right likely improving pleural fluid. 2. The lungs are clear, and there is no pneumothorax. Dictated by... Cristina Kelly M.D. THIS IS AN ELECTRONICALLY VERIFIED REPORT Cristina Kelly M.D. at 03/30/2017 8:53 AM Lyndsey TD: 03/29/2017 20:37 JOB #: [id number] [facility] A Service of [facility] RADIOLOGY TEXT RESULTS PATIENT: TANO ZAVALA [id number] 43 UNIT #: [id number] AGE: [address]: Alysia Turcios APRN SEX: M ORDER DR: MEDICAL IMAGING REPORT Page 1 of 1 COPY
== END | disposition home or self-care (01) ==
LOC: CRAD 11:29
DX: J90 Pleural effusion, not elsewhere classified (principal); J98.4 Other disorders of lung
CPT/HCPCS: 71020